=== PATIENT | male | born 1985 | race Caucasian/White ===

== ENCOUNTER 2021-02-04 11:45 | Emergency (ER) | payer MEDICAID, SELFPAY ==
[2021-02-04 11:57] VITALS: BP 131/86; PULSE 80; RESP 18; TEMP 36.5; O2SAT 99; BMI 36.5
--- NOTE | 2021-02-04 12:17 | ED_ITS ---
HPI - General Adult General: Chief complaint: General Medical Stated complaint: general malaise and shoulder pain Time Seen by Provider: 02/04/21 12:04 History of Present Illness: HPI narrative: Patient comes in with multiple complaints. First is right shoulder pain that is been going on for over a month. No known injury. Also complains about chronic reflux says he cannot get Zantac anymore and he is tried Angela-Centuria powder is not helping. Also states that has chronic migraines from 4-12 a day and has no medication to help with those. Onset (ago): month(s) Associated symptoms: Reports headache(s) (Chronic migraines says he has from 4- 12 a day); Deny chest pain, dyspnea, nausea, rash or vomiting Review of Systems Const: Denies: fever(s), chills or body aches Eyes: Denies: change in vision or blurry vision ENMT: Denies: throat pain or nasal congestion Card: Denies: chest pain or dyspnea on exertion Resp: Denies: dyspnea, productive cough or non-productive cough GI: Reports: heartburn (4 years does not have medicine); Denies: abdominal pain, nausea or vomiting : Denies: difficulty urinating Musc: Reports: joint pain (Right shoulder greater than a month no known injury); Denies: extremity pain Skin/Breast: Denies: rash Neuro: Reports: headache(s) (Chronic migraines says he has from 4-12 a day) Psych: Denies: anxiety or depression Leon/Lymph: Denies: easy bruising PFSH ED PFSH: Family History (Updated 12/17/19 @ 16:52 by VANE Allen) Mother Cancer Diabetes Hypertension Social History (Updated 12/17/19 @ 16:54 by VANE Allen) Smoking and tobacco status: current every day smoker Alcohol intake: never Adopted: No Caregiver/support person: No Marital status: History of recent travel: No Physical Exam Const: COMMON NORMALS: no acute distress, average body habitus and patient oriented x3 HENMT: COMMON NORMALS: normocephalic HEAD & SCALP: normal to inspection and normocephalic FACE & SINUS: normal facial exam Eye: COMMON NORMALS: conjunctivae normal GENERAL EYE: appearance normal, both eyes and all related structures CONJUNCTIVA: Yes conjunctivae normal Neck/C-Spine: COMMON NORMALS: no JVD Chest: COMMONS NORMALS: normal inspection of the chest Resp: COMMON NORMALS: normal respiratory effort and clear to auscultation bilaterally AUSCULTATION: clear to auscultation bilaterally Cardio: COMMON NORMALS: no JVD, regular rate and regular rhythm RATE: regular rate RHYTHM: regular rhythm GI: INSPECTION: Yes normal to inspection AUSCULTATION: Yes normoactive bowel sounds PALPATION: Yes Tenderness to palpation present (GI) (Upper epig astric area) Extremity: COMMON NORMALS: normal to inspection and full ROM RIGHT UPPER EXTREMITY: Yes shoulder joint Right shoulder: Yes Right shoulder joint ROM exam (Apley scratch test positive inferior and superior, resistance test positive) Neuro: COMMON NORMALS: patient oriented x3 and CN's II-XII intact bilaterally (Patient does have a 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) Course Vital Signs: Vital signs: Vital Signs Temperature 97.7 F 02/04/21 11:57 Pulse Rate 80 02/04/21 11:57 Respiratory Rate 18 02/04/21 11:57 Blood Pressure 131/86 02/04/21 11:57 Pulse Oximetry 99 02/04/21 11:57 Discharge Plan Discharge Patient Disposition: Home Clinical Impression: Chronic GERD Migraine headache Qualifiers: Migraine type: without aura Status migrainosus presence: with status migrainosus Intractability: intractable Qualified Code(s): G43.011 - Migraine without aura, intractable, with status migrainosus Supraspinatus tendinitis Qualifiers: Laterality: right Qualified Code(s): M75.91 - Shoulder lesion, unspecified, right shoulder Condition: Stable Prescriptions: New Protonix 40 mg tablet,delayed release (DR/EC) 40 mg PO DAILY 28 Days Qty: 28 RF: 0 propranolol 60 mg capsule,extended release 24 hr 60 mg PO DAILY Qty: 14 RF: 0 Voltaren 1 % gel 4 g topical QID Qty: 100 RF: 0 Discharge Orders: Discharge ED (Routine); Ordered 02/04/21 Ordered By: Magnus Gonzales Referrals: Em Berry FNP [Primary Care Provider] - Discharge Diet: As Directed Discharge Activity: Increase activity as tolerated Patient Instructions: Migraine Headache (ED), Rotator Cuff Tendinitis (ED), Gastroesophageal Reflux Disease (ED) Activity Restrictions/Additional Instructions: Follow-up with medical provider as directed. Take medications as prescribed. Return to the ER or your medical provider if condition worsens. Please read and understand discharge instructions. If any questions ask please. Search Internet for rotator cuff exercises that could benefit your shoulder. Change diet to decrease stomach acid producing foods. Follow-up your primary care provider to discuss your chronic migraine and shoulder and GERD problems. Coding Level of Care Code ED Marine Geologist for Marcieg Fwd Exam Comprehensive
== END 2021-02-04 12:37 | disposition home or self-care (01) ==
PROVIDERS: Emergency Provider Nurse Practitioner Family; PCP Nurse Practitioner Family
DX: G43.011 Migraine without aura, intractable, with status migrainosus (principal); K21.9 Gastro-esophageal reflux disease without esophagitis; M75.91 Shoulder lesion, unspecified, right shoulder; F17.210 Nicotine dependence, cigarettes, uncomplicated
CPT/HCPCS: 99282

== ENCOUNTER 2022-01-30 22:56 | Emergency (ER) | payer MEDICAID, SELFPAY ==
[2022-01-30 23:52] VITALS: BP 119/83; PULSE 68; RESP 18; TEMP 36.7; O2SAT 99; BMI 39.5
--- NOTE | 2022-01-31 01:03 | ED_ITS ---
HPI - Abdominal Pain General: Chief Complaint: Abdominal Pain Stated Complaint: R side abd pain Time Seen by Provider: 01/31/22 00:34 History of Present Illness: Patient is a 36-year-old male comes to the ED with acid reflux symptoms. Patient says he used to be on a medication for GERD but has stopped taking it approximately 4 to 5 months ago. For the past several days he has had frequent belching and will have episodes of right upper quadrant abdominal pain that only occurs when he lays flat. When he gets up and moves around the right upper quadrant abdominal pain goes away. Here in the ED he currently does not have any abdominal pain and just states that he has been belc siobhan a lot. his symptoms do improve when he belches. Denies any fever, chills, nausea/vomiting or diarrhea. Associated Symptoms: Reports belching and heartburn; Denies chills, constipation, diarrhea, dysuria, fever(s), hematochezia, hematuria, nausea and vomiting Review of Systems Const: Denies: fever(s), chills or fatigue Eyes: Denies: change in vision or eye discomfort ENMT: Denies: throat pain, odynophagia, nasal discharge or nasal congestion Card: Denies: chest pain, palpitations, edema, swelling of feet/ankles, dyspnea on exertion or orthopnea Resp: Denies: dyspnea, productive cough or non-productive cough GI: Reports: abdominal pain (Episode of right upper quadrant abdominal pain that resolved), heartburn and belching; Denies: nausea, vomiting, diarrhea, constipation or hematochezia : Denies: flank pain, difficulty urinating, dysuria or hematuria Musc: Denies: neck pain, back pain or extremity swelling Skin/Breast: Denies: rash or new lesions Neuro: Denies: headache(s), numbness in extremities or weakness in extremities PFSH ED PFSH: Medical History GERD (gastroesophageal reflux disease) Surgical History No pertinent past surgical history Family History Mother Cancer Diabetes Hypertension Social History Smoking and tobacco status: current every day smoker Alcohol intake: never Adopted: No Caregiver/support person: No Marital status: History of recent travel: No Physical Exam Const: COMMON NORMALS: no acute distress, patient oriented x3, healthy appearing and alert GENERAL APPEARANCE: cooperative and comfortable HENMT: COMMON NORMALS: normocephalic HEAD & SCALP: normocephalic MOUTH: Normal oral and palatal mucosa present THROAT: posterior oropharynx normal and uvula midline Neck/C-Spine: COMMON NORMALS: supple GENERAL: Yes normal visual inspection Resp: COMMON NORMALS: normal respiratory effort, No retractions, No use of accessory muscles and clear to auscultation bilaterally AUSCULTATION: clear to auscultation bilaterally Cardio: COMMON NORMALS: regular rate, regular rhythm, S1 normal heart sound present, S2 normal heart sound present, No gallops present (Cardio), No clicks present (Cardio), No murmurs present (Cardio) and Peripheral pulses 2+ throughout RATE: regular rate RHYTHM: regular rhythm HEART SOUNDS: S1 normal heart sound present and S2 normal heart sound present PERIPHERAL PULSES: Peripheral pulses 2+ throughout GI: COMMON NORMALS: Normal to inspection, nondistended, normoactive bowel sounds present, Soft to palpation, non-tender and no masses PALPATION: Yes Soft to palpation OTHER: Patient has no abdominal tenderness upon palpation throughout all 4 quadrants. No right upper quadrant tenderness and negative Potter sign. : COMMON NORMALS: Yes no CVA tenderness BLADDER/KIDNEY EXAM: Yes no CVA tenderness Back/Pelvis: COMMON NORMALS: no CVA tenderness Extremity: COMMON NORMALS: normal to inspection and no pedal edema Neuro: COMMON NORMALS: patient oriented x3 SENSORIUM/ORIENTATION: Yes alert GAIT: Yes Normal gait present Skin: GENERAL SKIN EXAM: dry skin Course Vital Signs: Vital signs: Vital Signs Temperature 98.0 F 01/30/22 23:52 Pulse Rate 68 01/30/22 23:52 Respiratory Rate 18 01/30/22 23:52 Blood Pressure 119/83 01/30/22 23:52 Pulse Oximetry 99 01/30/22 23:52 MDM - Abdominal Pain Medical Decision Making Patient is a 36-year-old male comes to the ED with GERD symptoms. He has a history of GERD and was taking an acid reflux medication but approximately 4 months ago he stopped. Reports a lot of belching currently says when he lays down he has some mild right upper quadrant abdominal pain. Here in the ED he has no active symptoms. Denies any current abdominal pain. Vitals are stable. Patient appears nontoxic in no acute distress or pain. He has no palpable abdom inal tenderness. Labs were unremarkable. Patient was diagnosed with chronic GERD and was discharged home with a prescription for pantoprazole. He was told to follow-up with his PCP within the next week for reevaluation. Return to ED precautions given. Patient understood agree with plan. Lab Data I reviewed the patient's lab results. : 01/31/22 01:36 01/31/22 01:36 Labs/Radiology: Laboratory Results WBC 12.6 10^3/uL (4.0-10.0) H 01/31/22 01:36 RBC 5.17 10^6/uL (4.1-5.3) 01/31/22 01:36 Hgb 15.5 g/dL (11.7-16.6) 01/31/22 01:36 Hct 47.3 % (42.0-52.0) 01/31/22 01:36 MCV 91.5 fl (80-94) 01/31/22 01:36 MCH 30.0 pg (28.0-34.0) 01/31/22 01:36 MCHC 32.8 g/dL (30.0-36.0) 01/31/22 01:36 RDW 12.4 % (12.1-15.1) 01/31/22 01:36 Plt Count 290 10^3/cmm (130-400) 01/31/22 01:36 MPV 11.8 fL (7.4-10.4) H 01/31/22 01:36 Neut % (Auto) 65.8 % 01/31/22 01:36 Lymph % (Auto) 21.4 % 01/31/22 01:36 Mcmullen % (Auto) 6.7 % 01/31/22 01:36 Eos % (Auto) 4.5 % 01/31/22 01:36 Baso % (Auto) 1.3 % 01/31/22 01:36 Neut # (Auto) 8.28 10^3/uL (1.8-7.7) H 01/31/22 01:36 Lymph # (Auto) 2.7 10^3/uL (0.8-4.8) 01/31/22 01:36 Mcmullen # (Auto) 0.8 10^3/uL (0.2-0.9) 01/31/22 01:36 Eos # (Auto) 0.6 10^3/uL (0.0-0.8) 01/31/22 01:36 Baso # (Auto) 0.2 10^3/uL (0.0-0.1) H 01/31/22 01:36 Nucleated RBC % (auto) 0 % 01/31/22 01:36 Nucleated RBCs # 0.0 /100WBC 01/31/22 01:36 Sodium 138 mmol/L (136-145) 01/31/22 01:36 Potassium 4.3 mmol/L (3.5-5.1) 01/31/22 01:36 Chloride 104 mmol/L (98-107) 01/31/22 01:36 Carbon Dioxide 23 mmol/L (22-29) 01/31/22 01:36 Anion Gap 15.3 (5-19) 01/31/22 01:36 BUN 14 mg/dL (6-20) 01/31/22 01:36 Creatinine 0.7 mg/dL (0.7-1.2) 01/31/22 01:36 GFR Calculation 126.2 mL/min (90-130) 01/31/22 01:36 Glucose 96 mg/dL (65-115) 01/31/22 01:36 Calculated Osmolality 286 mOsm/kg (285-295) 01/31/22 01:36 Calcium 9.9 mg/dL (8.5-10.5) 01/31/22 01:36 Total Bilirubin 0.3 mg/dL (0.15-1.2) 01/31/22 01:36 AST 18 U/L (0-40) 01/31/22 01:36 ALT 37 U/L (0-41) 01/31/22 01:36 Alkaline Phosphatase 151 IU/L (40-130) H 01/31/22 01:36 Total Protein 7.8 g/dL (6.6-8.7) 01/31/22 01:36 Albumin 4.6 g/dL (3.5-5.2) 01/31/22 01:36 Globulin 3.2 g/dL (1.3-4.6) 01/31/22 01:36 Lipase 24 U/L (13-60) 01/31/22 01:36 Discharge Plan Discharge Patient Disposition: Home Clinical Impression: Chronic GERD Condition: Stable Prescriptions: New pantoprazole 40 mg tablet,delayed release (DR/EC) 40 mg PO DAILY 28 Days Qty: 30 0RF No Action propranolol 60 mg capsule,extended release 24 hr 60 mg PO DAILY Qty: 14 0RF Voltaren 1 % gel 4 g topical QID Qty: 100 0RF Rx Instructions: apply to single knee, ankle, foot; for foot includes sole/toes/top of foot Discharge Orders: Discharge ED (Routine); Ordered 01/31/22 Ordered By: Junaid Tran Referrals: Em Berry FNP [Primary Care Provider] - Discharge Diet: Regular Discharge Activity: Resume usual activity Patient Instructions: GERD (Gastroesophageal Reflux Disease) (DC) Activity Restrictions/Additional Instructions: Follow-up with medical provider as directed the next 7 to 10 days for reevaluation. Take medications as prescribed. Return to the ER or your medical provider if condition worsens. Please read and understand discharge instructions. Thank you for choosing [facility] for your healthcare needs today. Please realize this is an emergency room and that we are providing you with a medical screening exam and this may not be complete and all inclusive of all the testing and or work up that you may need to determine your ailment or severity of your illness. It is very important that you follow up as instructed or that you return to the Emergency Department should you have concerns or if your condition changes or worsens in any way. Coding Level of Care Code ED Dovetail Machine Operator for Amelia Fwcurt Exam Comprehensive
[2022-01-31 01:41] LABS: Basophils # 0.2 10^3/uL (0.0-0.1); Basophils % 1.3 %; Eosinophils # 0.6 10^3/uL (0.0-0.8); Eosinophils % 4.5 %; Hematocrit 47.3 % (42.0-52.0); Hemoglobin 15.5 g/dL (11.7-16.6); Lymphocytes # 2.7 10^3/uL (0.8-4.8); Lymphocytes % 21.4 %; Mean Corpuscular HGB Conc 32.8 g/dL (30.0-36.0); Mean Corpuscular Volume 91.5 fl (80-94); Mean Platelet Volume 11.8 fL (7.4-10.4); Monocytes # 0.8 10^3/uL (0.2-0.9); Monocytes % 6.7 %; Neutrophils # 8.28 10^3/uL (1.8-7.7); Neutrophils % 65.8 %; Nucleated Red Blood Cells % 0 %; Platelet Count 290 10^3/cmm (130-400); Red Blood Count 5.17 10^6/uL (4.1-5.3); Red Cell Distribution Width 12.4 % (12.1-15.1); White Blood Count 12.6 10^3/uL (4.0-10.0)
[2022-01-31 02:11] LABS: Alanine Aminotransferase 37 U/L (0-41); Albumin Level 4.6 g/dL (3.5-5.2); Alkaline Phosphatase 151 IU/L (40-130); Anion Gap 15.3 (5-19); Aspartate Amino Transferase 18 U/L (0-40); Blood Urea Nitrogen 14 mg/dL (6-20); Calcium 9.9 mg/dL (8.5-10.5); Carbon Dioxide 23 mmol/L (22-29); Chloride 104 mmol/L (98-107); Creatinine Clr Calc Pharmacy 178.5275; Globulin 3.2 g/dL (1.3-4.6); Glomerular Filtration Rate 126.2 mL/min (90-130); Glucose 96 mg/dL (65-115); Lipase 24 U/L (13-60); Osmolality Calculated 286 mOsm/kg (285-295); Potassium 4.3 mmol/L (3.5-5.1); Sodium 138 mmol/L (136-145); Total Bilirubin 0.3 mg/dL (0.15-1.2); Total Protein 7.8 g/dL (6.6-8.7)
[2022-01-31 03:01] VITALS: BP 135/70; PULSE 77; RESP 18; O2SAT 98
== END 2022-01-31 03:02 | disposition home or self-care (01) ==
PROVIDERS: Emergency Medicine; Emergency Provider Physician Assistant; PCP Nurse Practitioner Family
DX: K21.9 Gastro-esophageal reflux disease without esophagitis (principal); F17.200 Nicotine dependence, unspecified, uncomplicated
CPT/HCPCS: 80053; 83690; 85025; 99282

== ENCOUNTER 2022-12-15 22:57 | Emergency (ER) | payer MEDICAID, SELFPAY ==
[2022-12-15 22:59] VITALS: BP 144/91; PULSE 91; RESP 16; TEMP 36.6; O2SAT 99; BMI 28.8
--- NOTE | 2022-12-15 23:08 | ED_ITS ---
HPI - Ear Problem General: Chief complaint: Ear Stated complaint: Wax In Right Ear Time Seen by Provider: 12/15/22 23:02 History of Present Illness: 37-year-old male patient comes in today for concerns of right ear pain and decreased hearing. Patient believes he might have a impaction of cerumen. Patient used a earwax candle and felt a pop and then after that he has not been able to hear anything in his ear. Patient used a earwax candle because of decreased hearing. And discomfort. Associated symptoms: Reports ear or mastoid pain; Denies fever(s) or neck pain Review of Systems Const: Denies: fever(s) ENMT: Reports: ear or mastoid pain and change in hearing Card: Denies: chest pain Resp: Denies: dyspnea Musc: Denies: neck pain or back pain PFSH ED PFSH: Medical History GERD (gastroesophageal reflux disease) Surgical History No pertinent past surgical history Family History Mother Cancer Diabetes Hypertension Social History Smoking and tobacco status: current every day smoker Alcohol intake: never Adopted: No Caregiver/support person: No Marital status: Physical Exam Const: COMMON NORMALS: alert HENMT: COMMON NORMALS: normocephalic HEAD & SCALP: normocephalic TYMPANIC MEMBRANE: TM abnormal TM laterality: right Details: bulging, dull and erythematous MOUTH: Normal oral and palatal mucosa present Neck/C-Spine: COMMON NORMALS: full ROM Resp: COMMON NORMALS: normal respiratory effort and clear to auscultation bilaterally AUSCULTATION: clear to auscultation bilaterally Cardio: COMMON NORMALS: regular rate and regular rhythm RATE: regular rate RHYTHM: regular rhythm Extremity: COMMON NORMALS: normal to inspection Neuro: SENSORIUM/ORIENTATION: Yes alert Skin: COMMON NORMALS: no rashes or lesions noted GENERAL SKIN EXAM: no rashes or lesions noted Course Vital Signs: Vital signs: Vital Signs Temperature 97.9 F 12/15/22 22:59 Pulse Rate 91 12/15/22 22:59 Respiratory Rate 16 12/15/22 22:59 Blood Pressure 144/91 12/15/22 22:59 Pulse Oximetry 99 12/15/22 22:59 Oxygen Delivery Me thod 12/15/22 22:59 MDM - Ear Medical Decision Making WoundPatient came in tonight for decreased hearing and pain to the right ear. Patient thought he might have cerumen impaction. On exam there is no cerumen impaction patient has a dull erythematous tympanic membrane. Differential diagnosis includes cerumen impaction, otitis externa, otitis media. Believe patient probably has otitis media was placed on 450 mg of clindamycin 3 times a day for 7 days. Patient was told use acetaminophen and ibuprofen for pain and to avoid using earwax candles. Discharge Plan Discharge Patient Disposition: Home Clinical Impression: Otitis media Condition: Stable Prescriptions: New clindamycin HCl 150 mg capsule 450 mg PO Q8H 7 Days Qty: 63 0RF No Action propranolol 60 mg capsule,extended release 24 hr 60 mg PO DAILY Qty: 14 0RF Voltaren 1 % gel 4 g topical QID Qty: 100 0RF Rx Instructions: apply to single knee, ankle, foot; for foot includes sole/toes/top of foot Discharge Orders: Discharge ED (Routine); Ordered 12/15/22 Ordered By: Moise Sue Referrals: Em Berry FNP [Primary Care Provider] - Discharge Diet: Usual diet Discharge Activity: Increase activity as tolerated Patient Instructions: Ear Infection (ED) Activity Restrictions/Additional Instructions: Drink plenty of fluids. Take antibiotic clindamycin 3 capsules 3 times a day for 7 days. Drink plenty of water with medication. Use acetaminophen and ibuprofen for pain. Do not stick anything in the ear, and avoid using earwax candles. Follow-up with primary care in 3 to 5 days for recheck. Return to ED for new concerns. Coding Level of Care Code ED Journeyman Powerhouse Operator for Amelia Dorman
[2022-12-15] MEDS: clindamycin 150 mg Capsule 600 MG PO (23:55)
[2022-12-15] MEDS: dexamethasone 4 mg Tablet 10 MG PO (23:55)
== END 2022-12-16 | disposition home or self-care (01) ==
PROVIDERS: Emergency Provider Nurse Practitioner Family; PCP Nurse Practitioner Family
DX: H66.91 Otitis media, unspecified, right ear (principal); F17.210 Nicotine dependence, cigarettes, uncomplicated
CPT/HCPCS: 99283; J8540